=== PATIENT | female | born 2000 | race Caucasian/White ===

== ENCOUNTER 2019-04-24 14:39 | Emergency (ER) | payer OTHER ==
[~2019-04-24] VITALS: Ht 162.5 cm; Wt 74.8 kg
[2019-04-24] MEDS ORDERED: ALLEGRA-D 24 H1 EACH PO (15:19)
== END 2019-04-24 15:29 | disposition home or self-care (01) ==
LOC: ED 14:39
DX: H92.02 Otalgia, left ear (principal); L73.1 Pseudofolliculitis barbae; F17.200 Nicotine dependence, unspecified, uncomplicated

== ENCOUNTER → 2024-04-29 | Outpatient (CLI) | payer OTHER ==
[~2024-04-29] MED LIST: ALLEGRA-D 24 H1 EACH PO
== END | disposition home or self-care (01) ==
LOC: US 14:00
PROVIDERS: ATTEND Nurse Practitioner Women's Health
DX: N92.6 Irregular menstruation, unspecified (principal)